=== PATIENT | female | born 1980 | race Caucasian/White ===

== ENCOUNTER 2019-02-06 17:49 | Observation (INO) | payer MEDICAID ==
[~2019-02-06] VITALS: Ht 154.9 cm; Wt 85.3 kg
[2019-02-06] MEDS ORDERED: ACETAMINOPHEN 500MG TABLET PO PRN (22:30)
== END 2019-02-07 10:03 | disposition home or self-care (01) ==
LOC: 8 EST LDRP 17:49
PROVIDERS: ADMIT Obstetrics & Gynecology; ATTEND Obstetrics & Gynecology
DX: O26.893 Other specified pregnancy related conditions, third trimester (principal); M54.9 Dorsalgia, unspecified; R10.9 Unspecified abdominal pain; Z3A.31 31 weeks gestation of pregnancy
CPT/HCPCS: 76805; 76815; 76818; 99281; G0378